=== PATIENT | male | born 1945 | race Asian ===

== ENCOUNTER 2018-11-23 07:11 | Day surgery (SDC) | payer OTHER ==
[2018-11-23] MEDS ORDERED: LACTATED RINGER'S 1,000 ML IV (08:30)
[2018-11-23] MEDS ORDERED: SPECIAL NON-STANDARD MEDICATION INJ (10:00)
[2018-11-23] MEDS ORDERED: NEOSTIGMINE 3 MG/3 ML SYRINGE (10:06)
[2018-11-23] MEDS ORDERED: PROPOFOL 20 ML (10:06)
[2018-11-23] MEDS ORDERED: ROCURONIUM 50 MG INJ (10:06)
[2018-11-23] MEDS ORDERED: LIDOCAINE 2% (SDV) 5 ML INJ (10:06)
[2018-11-23] MEDS ORDERED: GLYCOPYRROLATE 0.4 MG INJ ×2 (10:06→13:44)
[2018-11-23] MEDS ORDERED: SUCCINYLCHOLINE CHLORIDE 100 MG/5 ML SYG IV (10:06)
[2018-11-23] MEDS ORDERED: MEPERIDINE 100 MG INJ (10:06)
[2018-11-23] MEDS ORDERED: ONDANSETRON 4 MG INJ (10:10)
[2018-11-23] MEDS ORDERED: NEOMYC/POLYMYX/BACIT 30 GM OINT (10:39)
[2018-11-23] MEDS ORDERED: NEOMYC/POLYMYX/HC 10 ML OTIC SUSP (10:39)
[2018-11-23] MEDS ORDERED: EPINEPHrine 0.1 MG/ML SYG (11:37)
[2018-11-23] MEDS ORDERED: EPINEPHrine 1 MG/ML 30 ML INJ (11:37)
[2018-11-23] MEDS ORDERED: EPINEPHrine 10 MCG/1ml (10 ML SYG) IV (11:40)
[2018-11-23] MEDS ORDERED: LABETALOL HCL 20MG INJ IV (12:00)
[2018-11-23] MEDS ORDERED: MEPERIDINE 25 MG INJ IV (12:00)
[2018-11-23] MEDS ORDERED: DIPHENHYDRAMINE 50 MG INJ IV (12:00)
[2018-11-23] MEDS ORDERED: EPHEDrine 25 MG/5 ML SYG IV (12:00)
[2018-11-23] MEDS ORDERED: FENTAnyl 50 MCG/ML VIAL IV ×3 (12:00)
[2018-11-23] MEDS ORDERED: MIDAZOLAM 1 MG/ML 2 ML INJ IV (12:00)
[2018-11-23] MEDS ORDERED: ONDANSETRON 4 MG INJ IV (12:00)
[2018-11-23] MEDS ORDERED: METOCLOPRAMIDE 10 MG INJ IV (12:00)
[2018-11-23] MEDS ORDERED: HYDROmorphONE 1 MG/5 ML IV SYRINGE IV ×3 (12:00)
[2018-11-23] MEDS ORDERED: hydrALAzine 20 MG INJ IV (12:00)
[2018-11-23] MEDS: EPINEPHrine 1 MG INJ (12:03)
[2018-11-23] MEDS: LIDOCAINE 1%/EPI (1:100,000) (MDV) 20 ML INJ (12:03)
[2018-11-23] MEDS: GELATIN SIZE 100 SPONGE (12:03)
[2018-11-23] MEDS ORDERED: HYDROCODONE/APAP (7.5/325) TAB PO ×2 (12:30)
== END 2018-11-23 13:00 | disposition home or self-care (01) ==
LOC: SDS 07:11
DX: H70.92 Unspecified mastoiditis, left ear (principal); H71.92 Unspecified cholesteatoma, left ear; Z87.891 Personal history of nicotine dependence
CPT/HCPCS: 69641; 88304